=== PATIENT | male | born 1955 | race Caucasian/White ===

== ENCOUNTER 2020-08-23 15:01 | Emergency (ER) | payer OTHER, BC ==
[~2020-08-23] VITALS: Ht 188 cm; Wt 67.1 kg
[~2020-08-23 15:01] MED LIST: ADULT ASPIRIN R81 MG PO; AFRIN15 ML NS; AMOXICILLIN 50500 MG PO; ASPIR 8181 MG PO; BAYER CHEWABLE81 MG PO; BENAZEPRIL HCL20 MG PO; CARBIDOPA-LEVO1 EAC1; COZAAR 25 MG TA25 M1 PO; COZAAR 50 MG TA50 M1 PO; CRESTOR20 MG PO; DOK PLUS TABLE1 EACH PO; EFFIENT10 MG PO; HALDOL 0.5 MG0.5 MG PO; HUMALOG100 UNIT/1 SUBQ; HYDROCODON-ACE1 EAC7 PO; IBUPROFEN 400400 M2 PO; IMDUR 30 MG TAB30 M1 PO; LANTUS SUBQ; LANTUS100 UNIT/M SUBQ; LEVEMIR100 UNIT/1 SUBQ; LEVO-T75 MCG PO; LEVOTHYROXIN0.075 MG PO; LIDODERM1 EACH TOP; LIPITOR 20 MG T20 M1 PO; LISINOPRIL10 MG PO; LISINOPRIL2.5 MG PO; LOPRESSOR25 PO; MELATONIN3 M1 PO; METFORMIN HCL500 MG PO; MIRALAX17 G1 PO; NEURONTIN 300M300 M2 PO; NITROGLYCERIN0.4 MG SUBLING; NITROSTAT0.4 M1 SUBLING; NORCO 5-325 TA1 EACH PO; NORVASC5 MG PO; NOVOLOG100 UNIT/1 SUBQ; PANTOPRAZOLE SO40 MG PO; PLAVIX 75 MG TA75 M1 PO; PRILOSEC20 MG PO; PROTONIX40 M2 PO; SINEMET 10-1001 EAC1 PO; TESSALON PERLE100 MG PO; TRAMADOL 50 MG50 MG PO; TRESIBA FL100 UNIT/1 SUBQ; TUMS200 MG PO; TYLENOL 8 HOUR650 MG PO; TYLENOL325 M1 PO; VITAMIN D210 MCG PO; VITAMIN D2400 UNIT PO; VITAMIN D250 MCG PO
--- NOTE | 2020-08-23 17:08 | EKG ---
[address] [address] ELECTROCARDIOGRAM REPORT Name: AMARJIT HENDRICKS Room #: [facility]#: [id number] Admission: 08/23/20 Attend Phys: Discharge: Date of : 57 Report #: [id number] [facility] ED Test Date: 2020-08-23 Test Time: 16:12:31 Pat Name: AMARJIT HENDRICKS Department: Room: Gender: M Varnish Mixer: ANGELICA : 1955 Requested By: Edgar Bhatt Order Number: [id number] MD: Alan Dejesus Measurements Intervals [place] Rate: 54 P: ME: QRS: 18 QRSD: 107 T: 63 QT: 519 QTc: 492 Interpretive Statements NSR, artifact Nonspecific T abnormalities, lateral leads Borderline prolonged QT interval No previous ECG available for comparison Electronically Signed On 08-23-2020 17:08:36 CDT by Alan Dejesus [email or web address] <ELECTRONICALLY SIGNED> By: Alan Dejesus MD, [facility] 08/23/20 1708 1612 1612 Alan Dejesus MD, FACC /EPI
[2020-08-23 17:54] VITALS: BP 148/64
== END 2020-08-23 18:59 | disposition still patient (30) ==
LOC: ER 15:01
DX: F03.90 Unspecified dementia, unspecified severity, without behavioral disturbance, psychotic disturbance, mood disturbance, and anxiety (principal); Z20.822 Contact with and (suspected) exposure to COVID-19; I10 Essential (primary) hypertension; E11.9 Type 2 diabetes mellitus without complications; Z88.1 Allergy status to other antibiotic agents; Z88.5 Allergy status to narcotic agent; Z79.899 Other long term (current) drug therapy; Z79.2 Long term (current) use of antibiotics; Z79.82 Long term (current) use of aspirin; Z79.4 Long term (current) use of insulin

== ENCOUNTER 2020-08-23 16:11 | Inpatient (IN) | payer OTHER, BC ==
[~2020-08-23] VITALS: Ht 188 cm; Wt 83.4 kg
--- NOTE | 2020-08-24 03:48 | NUR ---
Ar[facility] on [facility]. Med issues CA, HTN, DN, Parkinsons, Hernea Repair. Extensiver Cardiac HX, with a HX of 8 stints placed. Covid 19 (-) and Covid Vac 07/23 and 08/04. DPOA is Shelby. Oriented x1 to self. Sees and hears hallucinations who he calls by name. Height 6'2" 185 pounds. VS163/99 74 18 97.0 97F. HRRR, Lungs CTA, ABD N x 4Q Bruises noted to left hand and left upper arm. Bruise to L a/c, Left jainism. R knee has abrasion. Left foot, 2nd toe has a blood blister. Wears glasses, no dentures, no hearing aide, reports hearing is somewhat okay. FSBS 208 @ 23:20. Orders impllemented. Becomes agitated when assisted to sit for safty, without regard for personal safeaty. Holds hand of staff tightly and reports hallucinations who he calls by name. Slept very little and spent the night in a miki chair in the day room, seated on a chair alarm . Will continue to monitor as per unit policy.
[2020-08-24 05:43] LABS: HEMATOCRIT 41.8 % (42.0-52.0); MCH 28.1 pg (26.0-34.0); MCHC 33.5 g/dL (28.0-37.0); RBC 4.98 mil/uL (4.50-6.00); RDW 17.7 % (10.5-14.5)
[2020-08-24 06:01] LABS: CHOLESTEROL 162 mg/dL (<200); HDL CHOLESTEROL 48 mg/dL (>40); LDL CHOLESTEROL 96 mg/dL (<100); TC:HDL 3.4 Ratio (Not establshd); TRIGLYCERIDE 92 mg/dL (<150); VLDL 18 mg/dL (<40)
[2020-08-24 06:08] LABS: ALBUMIN 3.5 g/dL (3.4-5.0); CALCIUM 9.3 mg/dL (8.5-10.1); CREATININE 0.9 mg/dL (0.7-1.3); POTASSIUM 3.5 mmol/L (3.5-5.1); TOTAL BILIRUBIN 0.6 mg/dL (0.2-1.0); TOTAL PROTEIN 8.1 g/dL (6.4-8.2)
[2020-08-24 06:08] LABS: SERUM ASSESSMENT Clear
--- NOTE | 2020-08-24 09:19 | NUR ---
New admit to [facility] with unspecified dementia, aggressive behavior. From SNF and on hospice services. Hx lymphoma, dm, htn, cad, parkinsons. BG elevated 220, has orders for ss insulin and glargine. BMI adequate. Will add carb control to diet order, follow intake and wt trends during stay. Otherwise low nutrition risk
[2020-08-24 10:29] VITALS: BP 120/79
--- NOTE | 2020-08-24 20:46 | NUR ---
0700 ASSUMED CARE OF PATIENT. PATIENT ASSISTED TO DAYROOM X1. UNSTEADY WHILE AMB, HIGH FALL RISK WITH YELLOW SHIRT, BAND AND SOCKS IN PLACE. PATIENT FEEDS SELF EATING 90% OF BREAKFAST. MEDICATION TAKEN CRUSHED IN PUDDING. INCREASED AGGITATION NOTED, PATIENT AMB IN STEINER X1 ASSIST, CALM DOWN WITH NO IM NEEDED. LS CLEAR, BS ACTIVE.
[2020-08-24 21:10] VITALS: BP 120/79
[2020-08-24 21:50] VITALS: BP 120/79
[2020-08-25 01:06] LABS: GLYCOHEMOGLOBIN (HGB A1C) 9.5 % (4.8-5.6)
[2020-08-25 09:39] VITALS: BP 106/67
--- NOTE | 2020-08-25 15:52 | NUR ---
PATIENT HAS BEEN UP, AND OUT ON THE UNIT, PARTICIPATES IN GROUP THERAPY. PATIENT TOOK ALL MEDICATION WHOLE WITHOUT DIFFICULTY, HE IS EATING MEALS, AND DRINKING FLUID FAIRLY WELL, ABLE TO FEED SELF. PATIENT RESPONDS TO INTERNAL STIMULI, TALKS TO SELF, AND UNSEEN OTHERS. INTERMITTENT IRRITABLE BEHAVIOR NOTED. NO S&S OF HYPER/HYPOGLYCEMIA NOTED, INSULIN GIVEN PER SLIDING SCALE ORDER. PATIENT AMBULATES WITH SLOW UNSTEADY GAIT, REFUSES TO USE WALKER. AFFECT IS FLAT/BLUNTED, MOOD SAD/DEPRESSED. NO SIGN OF ACUTE DISTRESS NOTED AT THIS TIME, WILL CONTINUE TO ENCOURAGE USE OF WALKER FOR SAFETY REASONS, AND MONITOR ACCORDINGLY.
[2020-08-25 19:55] VITALS: BP 135/86
[2020-08-26 11:40] VITALS: BP 166/76
--- NOTE | 2020-08-26 12:45 | NUR ---
Yesterday Dr. Vela and BENNIE attempted to call pt's Shelby at [phone]. Her phone went straight to and would not allow messages. Today SW attempted to contact pt and received the same msg. SW team will continue to follow pt during his stay on this unit.
[2020-08-26 19:53] VITALS: BP 120/70
--- NOTE | 2020-08-26 20:39 | NUR ---
0700 ASSUMED CARE OF PATIENT, PATIENT IN BED AT THAT TIME. PATIENT LEFT IN BED TILL 0830, PATIENT UP AND TO DAYROOM. VS166/76, 100, 16, 95.7, 92%. MEDICATION TAKEN WHOLE WITHOUT DIFFICULTY. AMB WITH UNSTEADY GAIT, YELLOW SHIRT ON AND HIGH FALL RISK PRECATIONS IN PLACE. LS CLEAR, ABD SOFT WITH BS ACTIVE. NO C/O PAIN. PATIENT IS CONFUSED AND INCREASED AGGRESSION NOTED AT TIMES. PATIENT LOOKING FOR EXIT TODAY AND WHEN REDIRECTED BACK TO STEINER PATIENT GOT UPSET THEN HITTING WALKER ON DOOR AND THROWING WALKER DOWN HALLWAY. REDIRECTED TO DAYROOM AND SITS DOWN WITH NO INCIDENTS.
[2020-08-26 20:45] VITALS: BP 120/70
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
--- NOTE | 2020-08-27 00:52 | NUR ---
Late entry d/t compluter downtime on 08/25&08/26. Assumed care on 08/25 @ 19:00 at that time patient is agitated and exit seeking, trying to open exit door to unit. Fighting staff who responded to his unsteady gait by hitting, grabbing and squeezing staff within his reach on the hand and arms. IM geodon 10mg x1 provided @ 1900. Became increasingly unsteady as he ambulated and refused to be seated for his safety. Increased agitation and combatitive behaviors noted, fighting staff who attempted to assist with ambulation. New order obtained for Ativan 1mg and Haldol 2.5mg IM provided @ 2100. Patient escorted to bed with x2 security and x2 staff and provided IM, which he tolerated well. Stayed in bed, although staff had to sit with the patient for about 30 minutes till he fell asleep, as he repeatedly attempted to get out of bed without regard for his personal safety. Slept well throughout the night, respirations even and unlabored, bed in low position bed alarm set, rounding as per unit protocol.
--- NOTE | 2020-08-27 02:28 | NUR ---
PATINET CARE WAS RESUMED AT 1900. HE WAS IN THE DINING AREA.ALERT AND CALM AND ABLE TO VERBALIZE SOME NEEDS. HE DENIES PAINS, SI/AVH/HI. LUNGS ARE CLEAR, BS ACTIVE X 4 QUAD. HE IS SITTING ON W/C AND HE TRY TO WHEEL HIMSELF. NO BEHAVIOUR IS NOTED AT THIS TIME. HE TOOK HIS MEDS WHOLE AND NO NEW SKIN ISSUE NOTED AT THIS SHIFT. HE IS INCONTINENT OF BLADDER. BED IS LOW, ALARMED AND LOCKED.
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
[2020-08-27 10:35] VITALS: BP 130/68
--- NOTE | 2020-08-27 17:38 | NUR ---
0700 ASSUMED CARE OF PATIENT, PATIENT SITTING IN CHAIR AT THAT TIME. AFTER RECIEVING IM INJECTION PATIENT NOTED FALLING ASLEEP ON COUCH. PATIENT TAKEN TO BED. PATIENT AWAKE AND ASSISTED TO BR. PATIENT AMB WITH WALKER WITH UNSTEADY GAIT. STAND BY ASSIST TO ASSIST X1 WITH CARES. MEDICATION TAKEN WHOLE WITHOUT DIFFICULTY. LS CLEAR, BS ACTIVE ABD SOFT. BM REPORTED BY PT. PATIENT RESTLESS AT TIMES AND AMB UP AND DOWN STEINER. PATIENT OBSERVED LEANING ON WALKER NEEDING ENCOURAGEMENT TO SIT IN CHAIR.
[2020-08-27 19:45] VITALS: BP 142/76
[2020-08-27 19:57] VITALS: BP 142/76
--- NOTE | 2020-08-28 00:48 | NUR ---
Assumed care on 08/27/20 @ 19:00, seated in a miki chair in the day room, calm and cooperative with care. Took meds whole with water, compliant with medications. Ate 100% of evening snack. Got a bloody nose, and instructions from Pily Cronin SALES TRAINING MANAGER to pinch the nose, apply ice externally and use gauze rolled up in the nostril. Ice applied for 20 minutes, nose pinched patient agreed to lay down in bed with head elevated. Will continue to monitor as per unit protocol.
[2020-08-28 09:48] VITALS: BP 145/62
--- NOTE | 2020-08-28 15:42 | NUR ---
SITTING QUIETLY IN DAYROOM UPON INITIAL ASSESSMENT THIS AM.COMPLIENT WITH TAKING AM MEDICATIONS WHOLE AND DID PARTICIPATE IN AM EXERCISE GROUP. DENIES C/O PAIN/DISCOMFORT. ORIENTED TO NAME -KNOWS IN HOSPITAL. DURING AM VISITNG HOURS APPROX 1130 NOTED TO BE INCREASINGLY RESTLESS,GAIT INSTEADY WITH NOTED FORWARD LEANING POSTURE BENT AT WAIST WITH HEAD [id number] TO ABDOMEN-REFUSING TO SIT OR USE WALKER-MUTTERING TO SELF-WHEN STAFF INQUIRED POINTS IN GENERAL DIRECTION OF A MALE VISITOR AND STATES "HE IS HERE TO KILL A LEASING ASSISTANT"DOES NOT RESPOND TO ATTEMPTS TO [id number] AND THEN BEGAN APPROACHING OTHER VISITORS IN DAYROOM TELLING THEM THAT THEIR FAMILY MEMBER WAS . INCREASED SPEED TO AMBULATION IN DAYROOM WEAVING BETWEEN MULTIPLE VISITORS AND AT ONE POINT WAS ALMOST RUNNING-TRIPPED AND WOULD HAVE FALLEN HEAD FIRST TO FLOOR IF STAFF SHADOWING HIM WOULD NOT HVE BEEN THERE TO STEADY-3 STAFF ATTEMPTED TO SIT HIM IN RECLINER AND HE BECAME COMBATIVE HITTING AND KICKING AT STAFF.DRIVING INSTRUCTOR PATIRA ON UNIT AND O RECEIVED. GEODON 15MG GIVEN X1 IN LEFT CHRISTINE AT APPROX 1215 WITH SECURITY STANDBY-OFFERS NO RESISTANCE TO IM.REFSUED AM INSULIN AND 1200 BE AND INSULIN.CURRENTLY SITTING QUIETLY IN GERICHAIR IN DAYROOM WATCHING SPORTING EVENT.
[2020-08-28 19:22] VITALS: BP 114/62
[2020-08-28 21:40] VITALS: BP 110/61
[2020-08-28 21:46] VITALS: BP 118/58
[2020-08-28 21:48] LABS: HEMATOCRIT 39.2 % (42.0-52.0); HEMOGLOBIN 12.9 gm/dL (14.0-18.0); MCHC 32.9 g/dL (28.0-37.0); MCV 85.2 fL (80.0-100.0); RBC 4.59 mil/uL (4.50-6.00); RDW 17.7 % (10.5-14.5)
[2020-08-28 21:54] VITALS: BP 127/64
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
[2020-08-28 21:57] LABS: ANION GAP 8 mmol/L (7-16); BUN 20 mg/dL (7-18); CALCIUM 9.4 mg/dL (8.5-10.1); CHLORIDE 103 mmol/L (98-107); CO2 30 mmol/L (21-32); CREATININE 1.1 mg/dL (0.7-1.3); GLUCOSE 148 mg/dL (74-106); POTASSIUM 4.1 mmol/L (3.5-5.1); SODIUM 141 mmol/L (136-145)
[2020-08-28 22:07] LABS: MAGNESIUM 1.8 mg/dL (1.8-2.4); TROPONIN-I <0.06 ng/mL (<0.06)
[2020-08-28 22:10] VITALS: BP 146/63
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
[2020-08-29 08:55] VITALS: BP 142/61
--- NOTE | 2020-08-29 15:45 | NUR ---
PATIENT HAS BEEN NON COMPLIANT WITH MEDICATIONS - REFUSING BOTH MORNING AND AFTERNOON DOSAGES. ATTEMPTED TO ENCOURGE FOR SOMETIME BUT REFUSED. BLOOD SUGAR AT LUNCH TIME. DID NOT ADMINISTER ANY INSULIN AT THAT TIME. COOPERATIVE WITH X-RAY OF RIGHT SHOULDER - AMBULATING AROUND UNIT WITH WALKER. AFFECT FLAT AND BLUNTED AND MOOD DETACHED. PATIENT TRIED TO EXPLAIN RATIONAL ON WHY REFUSING MEDICAITONS BUT WAS DIFFICULT TO GRASP WHAT HE WAS TRYING TO CONVEY. IMPULSIVE FOUND IN SHOWER WITHOUT TELLING ANYONE HIS INTENTIONS EARLIER THIS MORNING. PATIENT SHOWS NO AGITATION OR IRRITATION - REDIRECTABLE.
--- NOTE | 2020-08-29 17:22 | NUR ---
SW contacted [facility] to obtain correct phone number for patient's Shelby. Phone number is [phone]
--- NOTE | 2020-08-29 17:22 | NUR ---
SW contacted Patient's , Shelby Duvall. Patient's stated she had just spoken to patient approximately 5 minutes ago.
[2020-08-29 19:16] VITALS: BP 158/86
--- NOTE | 2020-08-29 21:17 | NUR ---
PATIENT SITTING IN DAY AREA, OCCASIONALLY WALKS WITH WALKER - UNSTEADY AT TIMES. PATIENT IS A HIGH FALL RISK. NO IRRITABILITY NOTED THIS EVENING, TOOK MEDS WITHOUT DIFFICULTY. DENIES ANY PAIN. AFFECT CONTINUES TO BE FLAT, THOUGH OCCASIONALLY SMIRKS AND LAUGHS APPROPRIATELY - SUCH WHEN HE PASSED GAS. DENIES ANY CONCERNS THIS MARCELA.
--- NOTE | 2020-08-30 07:12 | EKG ---
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[employer]: : 1955 Requested By: Pily Mckeon Order Number: [id number] MD: Alan Dejesus Measurements Intervals [place] Rate: 66 P: 13 MS: 169 QRS: 16 QRSD: 126 T: 143 QT: 447 QTc: 469 Interpretive Statements Sinus rhythm Nonspecific intraventricular conduction delay Nonspecific T abnormalities, lateral leads Compared to ECG 08/23/2020 16:12:31 Intraventricular conduction delay now present T-wave abnormality still present Electronically Signed On 08-30-2020 7:12:24 CDT by Alan Dejesus [email or web address] <ELECTRONICALLY SIGNED> By: Alan Dejesus MD, [facility] 08/30/2012 32 32 Alan Dejesus MD, [facility] /EPI
[2020-08-30 08:40] VITALS: BP 121/81
--- NOTE | 2020-08-30 11:16 | NUR ---
RT Progress Note- Since his admission to [facility], Mackenzie has kept to himself while in the milieu, but does engage in most recreation therapy groups providing his behavior is calm. Mackenzie has particularly participated in all exercise groups and pet visits. He does appear distracted and restless with poor focus on task at hand, often shouting out whatever is on his mind. STOGIE PACKER will continue to encourage progress towards goals.
--- NOTE | 2020-08-30 11:35 | NUR ---
Followup: remains on [facility]. From SNF and on hospice services. BG elevated 141-246, A1C 9.5% and requires ss insulin and scheduled glargine. Intake usually 75-100% of meals except yesterday and refused all meals. No new wt. Remains at low nutrition risk
--- NOTE | 2020-08-30 13:21 | NUR ---
APPEARS TO BE RESPONDING TO INTERNAL STIMULI THIS AM-BEGAN TO YELL LOUDLY AT BREAKFAST INSISTING THAT HE SAW DUANE () ACROSS THE HALLWAY IN A PT ROOM-GOT ABRUPTLY FROM CHAIR AND BEGAN TO WALK RAPIDLYTO THIS ROOM-REFUSED TO TAKE WALKER STATING "I NEED TO HURRY BEFORE SHE LEAVES WITHOUT ME" VERY ATAXIC STUMBLING ONCE AND LEANED SELF AGAINST WALL IN HALLWAY TO STEADY SELF. DOES NOT RESPOND TO ATTEMPTS TO REDIRECT OR REASSUR DESPITE MULTIPLE STAFF ATTEMPTING-INSITING THAT HE IS GOING TO STAY IN ROOM UNTIL DUANE COMES BACK. RELUCTANT TO TAKE AM MEDS BUT EVENTUALLY DID SO, REFUSED NOON BLOOD SUGAR CHECK AND NOTED TO BE CONSISTANTLY REFUSING SPOKE WITH DUANE AND DR JARAMILLO AND CHANGED TO ACCUCHECKS AT 0700 AND HS. DENIES PAIN/ BS ACTIVE-LUNGS CLEAR.
--- NOTE | 2020-08-30 15:38 | NUR ---
INCREASED PSYCHOSIS AFTER LUNCH-GESTURING TO UNSEEN OTHERS-WAVING ARMS IN AIR,YELLING OUT "DNR-HE IS A DNR-THEY DON'T CARE" "YELLING OUT LOUDLY FOR DUANE. WHEN APPROACHED WITH 1500 SEROQUEL WAS SUSPICIOUS-PARANOID WITH STAFF "I KNOW WHAT THAT IS IT WILL PUT ME ASLEEP FOREVER" THEN STRUCK NURSES HAND CAUSING THE PILLS TO FALL. DR ELDRIDGE NOTIFIED OF MED REFUSAL ORDERS RECEIVED TO ADMINISTER IM THORAZINE -SECURITY CONTACTED AND PT GIVEN THORAZINE IN LEFT DELTOID WITH MINIMAL RESISTANCE-DURING INJECTION THREATNED TO MURDER THIS NURSE.
[2020-08-30 20:00] VITALS: BP 126/73
[2020-08-30 20:53] VITALS: BP 126/73
--- NOTE | 2020-08-31 00:06 | NUR ---
GENA CARE WAS RESUMED AT 1900. HE IS ALERT IN THE DINING AREA. HE AMBULATES WITH WALKER. ABLE TO VERBALIZE SOME NEEDS. DENIES DISCOMFORT.SI/.AVH/ HI. AND ABD ACTIVE X 4 QUAD. HE TOOK HIS MEDS WHOLE. PT ON FALL PRECAUTION HE HAS YELLOW SOCK AND TOP ON. BED IS LOW, ALARMED, LOCKED. [id number] CHECKS ARE ONGOING.GENA VERBALIZED WANTING TO GO HOME. NO CONCERN NOTED AT THIS TIME CONTINUE CARE.
[2020-08-31 09:13] VITALS: BP 125/54
--- NOTE | 2020-08-31 14:03 | NUR ---
I assumed care of patient by 0700, patient was calm, no aggressive behavior, took his morning medications with no problem, Tylenol PRN was given for back pain.AMB with assist x one staff, last bowel meovement was 08/28/20 by patient.
--- NOTE | 2020-08-31 14:38 | NUR ---
Yesterday BENNIE and Dr. Vela spoke with pt's Shelby who said she agrees pt should return to [facility]. She may attempt to move him later. BENNIE faxed updates to [facility] SW team will continue to follow pt during his stay on this unit.
[2020-08-31 20:48] VITALS: BP 143/62
[2020-08-31 21:30] VITALS: BP 143/62
--- NOTE | 2020-09-01 05:11 | NUR ---
PATINET CARE WAS RESUMED AT 1900. HE IS ALERT AND ORIENTED. MAX ASSIST WITH CARE AND TRANSFER. LUNGS ARE CLEAR BS ACTIVE X4 QUADS. HE DENIES ANY PAINS/SI/AVH/ HI. HE TOOK HIS MEDS WHOLE AND ABLE TO VERABLIZE SOME NEEDS. ABD IS SOFT NON TENDER. BED IS LOCK. LOW AND ALARMED. HE IS CONTINET OF BOWEL AND BLADDER. NO CONCERN NOTED AT TIS SHIFT. CONTINUED ON [id number] CHECKES. HE HAS YELLOW TOP AND SOCKS ON FOR SAFETY.
[2020-09-01 09:54] VITALS: BP 104/66
--- NOTE | 2020-09-01 13:29 | NUR ---
PATIENT HAS BEEN UP, AND OUT ON THE UNIT, PARTICIPATES IN GROUP THERAPY. PATIENT TOOK ALL MEDICATION WHOLE WITHOUT DIFFICULTY, HEIS EATING MEALS, AND DRINKING FLUID WELL. PATIENT DENIES SUICIDAL/HOMICIDLA IDEATION, HE DENIES DEPRESSION/ANXIETY. PATIENT AMBULATE WITH ASSIST OF ROLLER WALKER, GAIT UNSTEADY. PATIENT IS FORGETFUL, AND CONFUSED AT TIMES, WANDERS, BUT REDIRECTABLE. NO S&S OF HYPER/HYPOGLYCEMIA NOTED, INSULIN GIVEN PER ORDER. NO AGGRESSION OR AGITATION NOTED AT THIS TIME. AFFECT IS FLAT/BLUNTED, MOOD IS DEPRESSED. NO SIGN OF ACUTE DISTRESS NOTED. WILL CONTINUE TO REDIRECT, AND MONITOR FOR SAFETY.
[2020-09-01 19:18] VITALS: BP 141/75
--- NOTE | 2020-09-02 01:55 | NUR ---
Pt. rested quietly in bed at . He offers no complaints.
[2020-09-02 08:00] VITALS: BP 103/59
--- NOTE | 2020-09-02 16:54 | NUR ---
Assumed pt care at 0300. pt was sleeping in his room. Alert and oriented to person and place. pt is forgetful, makes needs known to staff. Denies si/hi, denies pain at this time. took meds whole, no difficulty noted. No sign of acute distress noted upon assessments. ambulates with a walker. Attended groups. nO AGGRESSIVE BEHAVIOR NOTED THIS SHIFT. nO BOWEL MOVEMENT NOTED THIS SHIFT. 10 UNITS OF INSULIN ADMINISTERED AT AM for blood sugar of 230. calm and cooperative with care. Active bowel sounds. AT this time pt is sitting in the day room socializing. Will continue to monitor.
[2020-09-02 19:34] VITALS: BP 143/104
--- NOTE | 2020-09-03 05:39 | NUR ---
Assumed pt's care beginning of this pm shift. Pt was in his room at time of assessment. Cooperative with care. No agitation or agression noted. Denies SI/HI. Pt took meds whole without issues. Pt educated on his meds per his request. Pt slept little in the room and was brought out to the dayroom on a gerichair as he was attempting to get out of bed. Pt slept in the dayroom. with no issues. Nursing to continue to monitor.
[2020-09-03 08:43] VITALS: BP 136/60
--- NOTE | 2020-09-03 14:13 | NUR ---
BENNIE contacted Jessy to arrange discharge for pt on Sunday, and was told by Jessy that administration at [facility] have decided that pt is not welcomed back to their facility. BENNIE advised her that cannot happen as [facility] is an acute center, not a senior care, and has treated pt and therefore it is time for him to return to his home. He is doing well. She said she knows and she has advised administration that is not the law, and that there will be ramifications for deciding to evict pt without going through the proper channels. BENNIE explained that [facility] can be given a hefty fine by the state should they proceed, and also a eleazar against them. She said she did advise them of that. BENNIE also explained that they legally cannot prevent pt from entering into that facility should his decide to take him back as they have not gone throught the proper channels including notifying the [facility] that they plan to evict and giving a 30-day notice; even during those 30 days pt has the right to reside at that facility. Radha said she will relay this information but she has asked the healthcare facility administrator for a finalized answer, but he had been adamant that pt is to return. BENNIE said ok. Pt's was present for visitation, and BENNIE provided to her an update. She said she knew it was going to happen. They have yet to [place] a check she sent them for 1.5 months of rent. She said they told her she can come get her check. BENNIE advised her to not do anything until she hears from the [facility] on this issue as accepting the check may send the message that she accepts this decision. She agreed and said she will not accept pt's check until she hears from the [facility]. BENNIE sent an email to Radha Turner, the [facility] asking her to call BENNIE. BENNIE also provided an update to Dr. Vela. BENNIE team will continue to follow pt during his stay on this unit.
--- NOTE | 2020-09-03 16:17 | NUR ---
Assumed pt care at 0700. pt was alert and oriented to person and time. Assessments completed, vss. pt took meds whole, no difficulty noted. Denies si/hi. c/o pain, meds administered as ordered. ACTIVE BOWEL SOUND, No bowel movement noted this shift. calm and cooperative with care. No behaviors noted this shift. Ambulates with a walker. 10 units of insulin administered at AM for Blood sugar of 230. 10 unit of insulin administered for blood sugar of 293 at noon, per Dr Dao order. Pt visited. AT this time pt is in the Romina chair resting.
[2020-09-03 19:23] VITALS: BP 167/79
[2020-09-03 20:20] VITALS: BP 167/79
--- NOTE | 2020-09-04 02:59 | NUR ---
PATINET CARE RESUMED AT 1900. HE IS IN THE DINING AREA ON A SIMA-CHAIR. ALAER AND SLEEPY BUT ABLE TO VERBALISED NEEDS. LUNG ARE CLEAR BS ACTIVE X4 QUAD. MEDS WERE GIVEN WHOLE . HE DENIES PAINS AND SI/AVH/HI. NO CONCERN OR BEHAVIOR NOTED AT THIS TIME.
[2020-09-04 10:05] VITALS: BP 128/67
--- NOTE | 2020-09-04 16:28 | NUR ---
CALM AND COOPERATIVE THROUGHOUT SHIFT-COMPLIENT WITH TAKING MEDICATIONS WITHOUT RESISTANCE-DOES NOT APPEAR TO BE HALLUCINATING OR SUSPICIOUS OF STAFF IN PREVIOUS SHIFTS. ATTENDING GROUP-DOES HAVE SOME MILD SEDATION AFTER THORAZINE ADMINISTRATION-BUT HAS NOT BEEN SLEEPING-SLOW TO RESPOND. DESCRIBES MOOD "DOCILE" AND DENIES ACUTE ANXIETY-DEPRESSED MOOD. GOOD APPETITE. COMPLIENT WITH FALLS PRECAUTIONS AND HAS NOT BEEN IMPULSIVLY GETTING UP ON OWN A RUNNING DOWN STEINER IN PREVIOUS SHIFTS.
[2020-09-04 20:00] VITALS: BP 124/62
[2020-09-04 20:13] VITALS: BP 124/62
--- NOTE | 2020-09-05 01:57 | NUR ---
[facility] CARE WAS RESUMED AT 1900. HE WAS ALERT AND ORIENTED TO PERSON AND PLACE. ABLE TO COMMUNICATE SOME NEEDS. LUNGS ARE CLEAR BS ACTIVE X 4QUADS. BS ACTIVE AND ABD IS SOFT FLAT AND NON TENDER.HE DENIES ANY PAINS/SI/AVH/HI. HE IS CONTINIET BOWEL AND BLADDER. MAX ASSISTANCE WITH CARE AND TRANSFER. NO CONCERN OR BEHAVIOR IS NOTED AT THIS TIME. HE IS ON FALL PREACUTION WITH BED LOW, ALARMED, LOCKED. Q12 MINUTES CHECKS ARE ONGOING. HIS IS ASSISTED WITH TRANSFERS AND ADLS. CONTINUE CARE AND MONITOR.
[2020-09-05 07:13] LABS: ABSOLUTE NEUTROPHILS 7.9 thou/uL (1.4-8.2); BASOPHILS 0.7 % (0.0-2.0); EOSINOPHILS 0.7 % (0.0-3.0); HEMATOCRIT 40.3 % (42.0-52.0); HEMOGLOBIN 13.5 gm/dL (14.0-18.0); MCH 28.4 pg (26.0-34.0); MCHC 33.6 g/dL (28.0-37.0); MCV 84.5 fL (80.0-100.0); MONOCYTES 8.1 % (1.0-8.0); PLATELET COUNT 294 thou/uL (150-400); POLYS 65.5 % (36.0-66.0); RBC 4.76 mil/uL (4.50-6.00); RDW 17.5 % (10.5-14.5); WBC 12.1 thou/uL (4.0-11.0)
[2020-09-05 07:30] LABS: CALCIUM 9.8 mg/dL (8.5-10.1); CREATININE 1.1 mg/dL (0.7-1.3); MAGNESIUM 1.6 mg/dL (1.8-2.4); PHOSPHORUS 3.3 mg/dL (2.6-4.7)
--- NOTE | 2020-09-05 07:30 | NUR ---
ARRIVING TO PATIENT ROOM RESPONDING TO ALARM, THIS NURSE SAW GENA STANDING IN THE BATHROOM WITH CONVICT GUARD,HOLDING HIM FROM FALLING AND PROVIDING SUPPORT.PT IS VERY WEAK AND DAZZED. PT WAS SITTED ON THE TIOLET AND HE RESPONDEDS TO NAME. CALL FOR ASSISTANCE. PAT WAS TRANSFER TO CHAIR WITH GAIT BELT AND VITAL NOTED AT 151/70, 47, 98%, BS 235. PT WAS RESPONSIVE BUT WEAK. ICE WATER WAS OFFERED AND HE TOLERATES VERY GOOD. LAB WAS PRESENT FOR SCHEDULED AM DRAW. ONCOMING NURSE WAS NOTIFED TO FOLLOW UP WITH CARE AND LAB REPORT WHEN AVAILABLE.
[2020-09-05 09:07] VITALS: BP 141/52
[2020-09-05 10:35] VITALS: BP 134/70
[2020-09-05 10:40] VITALS: BP 140/104
[2020-09-05 10:45] VITALS: BP 112/69
--- NOTE | 2020-09-05 12:32 | EKG ---
[address] [address] ELECTROCARDIOGRAM REPORT Name: AMARJIT HENDRICKS Room #: 526A-A ADM IN M.R.#: [id number] Admission: 08/23/20 Attend Phys: Lonnie Vela DO Discharge: Date of : 57 Report #: [id number] [facility] Test Date: 2020-09-05 Test Time: 10:09:29 Pat Name: AMARJIT HENDRICKS Department: Room: 52 A Gender: M Blending Technician: FSCHEUGENE : 1955 Requested By: Angeles Merchant Order Number: [id number] MD: Alan Dejesus Measurements Intervals [place] Rate: 55 P: 12 DE: 179 QRS: 20 QRSD: 124 T: 194 QT: 436 QTc: 417 Interpretive Statements Sinus rhythm Nonspecific intraventricular conduction delay Borderline repolarization abnormality Compared to ECG 08/28/2020 21:33:44 T-wave abnormality no longer present Electronically Signed On 09-05-2020 12:32:39 CDT by Alan Dejesus [email or web address] <ELECTRONICALLY SIGNED> By: Alan Dejesus MD, [facility] 09/05/20 1232 1009 1009 Alan Dejesus MD, [facility] /EPI
--- NOTE | 2020-09-05 18:25 | NUR ---
0700 ASSUMED CARE OF PATIENT, PATIENT CALM AND QUIET IN DAYROOM. MEDICATIONS TAKEN WHOLE. PATIENT VOIDED A LARGE AMT OF URINE THIS AM, URGENCY NOTED WITH MULTIPLE ATTEMPT TO VOID WITH NO SUCCESS. ABD SOFT NO C/O PAIN. PATIENT INCONTINENT WITH BRIEF WET, PATIENT CLEANED UP AND BACK OUT TO DAYROOM. PATIENT CRACKING JOKES AND LAUGHS AFTER SPEAKING. AT TIMES DIFFICULTY UNDERSTANDING. LS CLEAR, BS ACTIVE. VS STABLE
[2020-09-05 19:52] VITALS: BP 99/78
[2020-09-05 21:26] LABS: URINE BILIRUBIN NEGATIVE (Negative); URINE BLOOD NEGATIVE (Negative); URINE CLARITY CLEAR; URINE COLOR YELLOW; URINE GLUCOSE-RANDOM* 3+ (Negative); URINE KETONES NEGATIVE (Negative); URINE LEUKOCYTES NEGATIVE (Negative); URINE NITRITE NEGATIVE (Negative); URINE PROTEIN (DIPSTICK) NEGATIVE (Negative)
--- NOTE | 2020-09-06 03:36 | NUR ---
09-06-20 CARE TRANSFERRED 1900 OBSERVED PT SITTING IN RECLINER IN DAY ROOM. LATER PT AAOX1, VSS, RR EVEN AND NONLABORED ON RA. PT DENIES SI/HI AND PAIN, OBSERVED NO S/S OF PAIN OR NO SI/HI BEHAVIORS. PT PRESENTED CALM AND COOPERATIVE AND ASSISTED PT TO BATHROON AND COLLECTED UA SPECIMEN. PT WILL CONTINUE TO BE MONITOR PER [facility] PROTOCOL.
[2020-09-06 05:25] LABS: ABSOLUTE NEUTROPHILS 7.3 thou/uL (1.4-8.2); BASOPHILS 0.6 % (0.0-2.0); EOSINOPHILS 0.4 % (0.0-3.0); HEMATOCRIT 38.6 % (42.0-52.0); HEMOGLOBIN 12.7 gm/dL (14.0-18.0); MCH 28.2 pg (26.0-34.0); MCV 85.3 fL (80.0-100.0); MONOCYTES 6.5 % (1.0-8.0); PLATELET COUNT 324 thou/uL (150-400); POLYS 65.5 % (36.0-66.0); RBC 4.52 mil/uL (4.50-6.00); RDW 17.8 % (10.5-14.5); WBC 11.1 thou/uL (4.0-11.0)
[2020-09-06 05:33] LABS: CALCIUM 9.2 mg/dL (8.5-10.1); CREATININE 1.1 mg/dL (0.7-1.3); MAGNESIUM 1.8 mg/dL (1.8-2.4); PHOSPHORUS 3.5 mg/dL (2.5-4.9); POTASSIUM 3.8 mmol/L (3.5-5.1)
--- NOTE | 2020-09-06 09:04 | NUR ---
Follow up: Remains on [facility]. On hospice services. BG uncontrolled 148-346 last 48 hours. DM meds adjusted. Intake consistently >75% at meals. BMI 23.6. Low nutrition risk.
[2020-09-06 09:07] VITALS: BP 120/68
--- NOTE | 2020-09-06 11:03 | NUR ---
RT Progress Note- Mackenzie has been present in many recreational therapy groups as well as the milieu, throughout this review period. Mackenzie continues to make progress towards recreation therapy goals, however does show some difficulty remaining focus and is impulsive at times, i.e. standing up from group and walking at a near running pace towards hallways, shouting out off topic demands. He has however not displayed violent or aggressive behaviors towards peers or RT staff during interaction and is overall easy to redirect. RT team will continue to encourage progress.
--- NOTE | 2020-09-06 13:54 | NUR ---
Assumed pt care at 0700. pt was awake in his room. Assessments completed, vss. Pt took meds whole, no difficulty noted. Ambulates with a walker. pt was alert and oriented to person and Confused. pt was wandering the unit. Pt enters into other pt rooms. pt was redirected. pt was hallucinating of people coming to hurt him. pt was redirected. pt slide himself down to the floor. pt was assisted back to his chair by staffs. pt was assisted to his room to rest. no sign of acute distress or si/hi noted. Orthostatic B/p was ordered on pt. b/P WAS TAKING 4 MINUTES APART. Sitting b/p: 102/62, P 62. Standing b/p 80/51, P 78. Lying down b/P 126/67, P 61. DR Vela and DR Ivy was notified. At this time pt is in his room resting. Will continue to monitor.
[2020-09-06 19:15] VITALS: BP 149/87
--- NOTE | 2020-09-07 01:07 | NUR ---
09-06-20 CARE TRANSFERRED 1900 OBSERVED PT SITTING IN RECLINER IN DAY ROOM. LATER PT AAOX1, VSS, RR EVEN AND NONLABORED ON RA. PT DENIES PAIN AND SI/HI. PT HAS REMAINED CALN AND COOPERATIVE THROUGHOUT NURSING ASSESSMENT. DURING MEDICATION ADMIN PT WAS RESISTANCE AND MEDICATIN REVIEWED AND PT HAD NO DIFFICULTIES TAKING WHOLE WITH WATER. ZERO S/S OF ACUTE DISTRESS NOTED, PT WILL CONTINUE TO BE MONITOR PER [facility] PROTOCOL.
[2020-09-07 09:00] VITALS: BP 133/64
[2020-09-07 09:05] VITALS: BP 129/66
[2020-09-07 09:10] VITALS: BP 90/57
[2020-09-07 09:23] VITALS: BP 128/76
--- NOTE | 2020-09-07 18:07 | NUR ---
0700 ASSUMED CARE OF PATIENT, PATIENT IN DAYROOM AT THAT TIME. PATIENT CALM AND COOPERATIVE. MEDICATION TAKEN WHOLE WITHOUT DIFFICULTY. LS CLEAR, BS ACTIVE. NO C/O PAIN. PATIENT SPEAKS WITH A SOFT VOICE AT TIMES. SITS AND WATCHES TV AT TIME. SLEEPS OFF AND ON IN CHAIR. ASSIST X1 TO BR. EMRE HOSE APPLIED AT 1610, PATIENT C/O EMRE HOSE TO TIGHT. ENCOURGED PATIENT TO LEAVE ON, PATIENT NOTED TAKING PANTS OFF TO GET EMRE HOSE OFF. 1700 PATIENT ATTEMPTS TO GET EMRE HOSE OFF. EMRE HOSE REMOVED BY STAFF AT 1710.
[2020-09-07 19:58] VITALS: BP 127/68
[2020-09-07 21:00] VITALS: BP 127/68
--- NOTE | 2020-09-08 02:31 | NUR ---
PATINET CARE WAS RESUMED AT 1900. HE SI ALERT AND WAS SITTING IN THE DININIG AREAS. HE DENIES PAINS/SI/AVH/HI. BES ACTIVE X4 QAUDS. NO BEHAVOIR NOTED AT THIS TIME. HE TOOK HIS MEDS WHOLE. YELLOW TOP AND SOCKS ARE ON AND BED IS LOW, LOCKED AND ALARMED. HE SI SLEEPING ON THE RECLINER AT THIS TIME.Q 12MINUTES CHECK IS ONGONIG. CONTINUE CARE AND MONITOR
[2020-09-08 10:55] VITALS: BP 153/71
--- NOTE | 2020-09-08 14:14 | NUR ---
Alert and orientated to name only. Was able to state correct day and month, but consistently stated it was 1975. Denies SI/HI. Slow, steady gait with walker with assistance. Breath sounds clear. Reg HR auscultated. Color pink with brisk capillary refill and palpable peripheral pulses. +1 edema in feet. Continent of yellow urine per toilet. Active bowel sounds over soft, rounded abdomen. States he had BM yesterday which is consistent with report. Sitting in day room in recliner without s/o distress.
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
[2020-09-08 16:00] VITALS: BP 148/72
[2020-09-08 19:36] VITALS: BP 132/71
--- NOTE | 2020-09-09 04:05 | NUR ---
PATINET CARE WAS RESUMED AT 1900. HE IS ALERT AND WAS IN THE DINING AREA.HE IS A MAX ASSIST WITH CARE, DENIES SI/AVH/HI.HE TOOK HIS MEDS WHOLE AND BS ACTIVE LUNGS ARE CLEAR AND NO OEDEMA NOTED. HE AMBULATES WITH W/C AND WALKER WITH ASSIST. BED IS LOW, ALARMED AND LOCK WITH [id number] CHECKS ONGOING . HE HAS A YELLOW TP AND SOCK ON.NO CONCERN NOTED AT THIS TIME.
[2020-09-09 09:05] VITALS: BP 100/58
[2020-09-09 14:25] VITALS: BP 132/59
[2020-09-09 14:30] VITALS: BP 138/66
[2020-09-09 14:35] VITALS: BP 102/55
--- NOTE | 2020-09-09 18:28 | NUR ---
0700 ASSUMED CARE OF PATIENT, PATIENT CALM AND COOPERATIVE. AMB WITH WALKER WITH STANDBY ASSIST. PATIENT CONTINENT, NO C/O PAIN, LS CLEAR, BS ACTIVE. DENIES SI/HI. MEDICATIONS TAKEN WHOLE WITHOUT DIFFICULTY. PATIENT NOSE BLEEDING, PATIENT PICKING AT IT AND BLOOD CONTINUES TO DRIP OUT. TISSUE USED IN NOSE TO STOP BLEEDING. IF TISSUE REMOVED BLEEDING CONTINUES WITH BLOOD CLOTS. PRESSURE APPLIED DR HOPSON NOTIFIED ORDER RECIEVED. BLEED STOPPED AFTER PRESSURE APPLIED -PATIENT ASKED TO NOT PICK AT IT, PATIENT VOICED UNDERSTANDING.
[2020-09-09 19:50] VITALS: BP 133/95
[2020-09-09 19:58] VITALS: BP 133/95
--- NOTE | 2020-09-09 23:31 | NUR ---
[facility] C[facility] WAS RESUMED AT 1900. HE WAS IN THE DINING AREA RELAXING ON THE RECLINER. HE IS CALM AND CO-OPERATIVE WITH CARE. ABLE TO VERBALIZE SOME NEEDS. HE DENIES SI/AVH/HI/ PRN PAIN MED WAS GIVEN FOR PAINS TO HIS LOWER EXTREMITIES. NO CONCERN NOTED AT THIS TIME. HE TOOK HIS MEDS WHOLE. YELLOW SCK AND TOP ARE ON FR FALL PRECAUTION. BED IS LOW, AARMED AND LOCKED WITH Q 12MINS CHECKS ONGOING. CONTINUE CARE AND MONITOR.
[2020-09-10 06:23] LABS: HEMOGLOBIN 12.6 gm/dL (14.0-18.0); MCHC 33.1 g/dL (28.0-37.0); MCV 84.7 fL (80.0-100.0); RBC 4.49 mil/uL (4.50-6.00); RDW 17.6 % (10.5-14.5); WBC 11.5 thou/uL (4.0-11.0)
[2020-09-10 06:33] LABS: CALCIUM 8.9 mg/dL (8.5-10.1); CREATININE 0.8 mg/dL (0.7-1.3); MAGNESIUM 1.9 mg/dL (1.8-2.4); POTASSIUM 3.7 mmol/L (3.5-5.1)
--- NOTE | 2020-09-10 08:19 | NUR ---
BENNIE contacted Jessy with [facility] to reiterate that pt will be returning today. No answer. BENNIE left a msg on her vm with this information. BENNIE contacted [facility] and spoke to the BENNIE named Karen. BENNIE told her that pt will be returning today. Her response was "we've made it clear that he cannot return here. Corporate has said in and the DON as well." BENNIE told her that she understands, but that the hospital has no bearings on this decision. BENNIE explained that is a discussion they must have with pt's family and the state. Karen said she has not heard from the state and until she does she will not be accepting pt back. BENNIE explained that we the hospital have been in contact with the Ombudsman and they have made the rules clear. The Ombudsman was not aware of [facility] wanting to relieve pt and they must include her. Karen said that they have been assisting with identifying placement. BENNIE explained that is also a misconception. [facility] must find placement for pt, not assist, before they can issue a 30 day notice. They also must notify the Ombudsman of what is occurring. BENNIE explained that she is very empathetic to their position and said she said this to both Jessy and the DON the other day when they visited. She also explained again that the hospital is not in this debate. The hospital is simply an acute center to treat issues, and then return patients home when they are stable. She again reiterated she has not heard from the state and therefore will not be accepting pt back. BENNIE offered to give Karen Garcia's phone number. Karen accepted the number. Phone call ended. BENNIE provided an update to [facility] director. BENNIE Team will continue to follow pt during his stay on this unit.
[2020-09-10 09:16] VITALS: BP 162/81
[2020-09-10] MEDS ORDERED: MIDODRINE HCL 55 M1 PO (10:26)
[2020-09-10] MEDS ORDERED: TRADJENTA5 MG PO (10:28)
[2020-09-10] MEDS ORDERED: CHLORPROMAZINE25 M1 PO (10:28)
[2020-09-10] MEDS ORDERED: LANTUS SUBQ (10:29)
--- NOTE | 2020-09-10 11:09 | NUR ---
Alert and orientated X3. Drowsy this am but able to stand on his own. Denies SI/HI. Breath sounds clear. Reg HR auscultated. Color pink with brisk capillary refill and palpable peripheral pulses. No edema noted. Knee high EMRE hose placed. Brief saturated with yellow urine. Incontinent of yellow urine while being changed. States he had BM yesterday, stool on toilet seat noted. Active bowel sounds over soft, rounded abdomen. Slow, shuffling gait, able to assist with transfer. Instructed to not call report to [facility] until after pt left facility by Edith AVERY and Seble Timmons, director. Called and DPOA Shelby Duvall, agrees with transfer back to [facility]. Discharged per to express transport, left unit in with SECURITY TEAM LEAD. Report called to [facility]. They stated that they were not accepting pt and refused to take report, stated they were trying to send him to [facility]. Phone given to Seble Timmons, director who finished phone conversation.
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
--- NOTE | 2020-09-10 11:48 | NUR ---
BENNIE D/C NOTE SW faxed to [facility] a copy of pt's discharge documents. BENNIE will file fax confirmation in pt's hospital file. No other needs for sW team to address at this time.
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
== END 2020-09-10 10:50 | DRG 57 ==
LOC: SBH
PROVIDERS: Internal Medicine; Nurse Practitioner Family; Psychiatry & Neurology Psychiatry; ADMIT Psychiatry & Neurology Psychiatry; ATTEND Psychiatry & Neurology Psychiatry
DX: G31.83 Neurocognitive disorder with Lewy bodies (principal); F02.81 Dementia in other diseases classified elsewhere, unspecified severity, with behavioral disturbance; F01.51 Vascular dementia, unspecified severity, with behavioral disturbance; I10 Essential (primary) hypertension; E11.9 Type 2 diabetes mellitus without complications; I25.10 Atherosclerotic heart disease of native coronary artery without angina pectoris; E03.9 Hypothyroidism, unspecified; E78.5 Hyperlipidemia, unspecified; Z66 Do not resuscitate; M51.26 Other intervertebral disc displacement, lumbar region; D64.9 Anemia, unspecified; I95.1 Orthostatic hypotension; R04.0 Epistaxis; Z79.899 Other long term (current) drug therapy; I25.2 Old myocardial infarction; Z95.5 Presence of coronary angioplasty implant and graft; Z85.72 Personal history of non-Hodgkin lymphomas; Z88.8 Allergy status to other drugs, medicaments and biological substances; Z88.6 Allergy status to analgesic agent
CPT/HCPCS: 10880